=== PATIENT | female | born 1955 | race American Indian/Alaskan Native ===

== ENCOUNTER 2017-03-11 10:00 | Emergency (ER) | payer MEDICARE ==
[2017-03-11 11:17] LABS: Basophils % (Auto) 1.1 % (0.0-1.8); Hematocrit 52.3 % (30.3-42.9); Mean Corpuscular HGB Conc 33 % (30-34); Mean Corpuscular Hemoglobin 32 pg (28-32); Mean Corpuscular Volume 98 fl (79-97); Platelet Count 260 K/mm3 (140-440); Red Blood Count 5.33 M/mm3 (3.65-5.03); Red Cell Distribution Width 13.9 % (13.2-15.2); White Blood Count 6.7 K/mm3 (4.5-11.0)
[2017-03-11 11:36] LABS: Anion Gap 19 mmol/L; BUN/Creatinine Ratio 22.85; Blood Urea Nitrogen 16 mg/dL (7-17); Calcium 9.9 mg/dL (8.4-10.2); Carbon Dioxide 22 mmol/L (22-30); Chloride 102.5 mmol/L (98-107); Glucose 122 mg/dL (65-100); Potassium 3.9 mmol/L (3.6-5.0); Sodium 140 mmol/L (137-145)
[2017-03-11 12:26] LABS: Bilirubin,Urine NEG (Negative); Blood,Urine NEG (Negative); Ketones,Urine NEG (Negative); Leukocyte Esterase,Urine NEG (Negative); Mucus,Urine FEW /HPF; Nitrite,Urine NEG (Negative); Urobilinogen,Urine < 2.0 mg/dL (<2.0)
--- NOTE | 2017-03-11 13:28 | Emergency Department Report ---
ED General Adult HPI - General Chief complaint: Nausea/Vomiting/Diarrhea Stated complaint: Chest Pain Time Seen by Provider: 03/11/17 12:56 Source: patient Mode of arrival: Ambulatory Limitations: No Limitations - History of Present Illness Initial comments: Patient comes in the ER today with complaints of generalized abdominal cramping , diarrhea, nausea, headaches. Patient has had symptoms for the past week and thinks that is related to the new diabetes medicine. Patient states that she was recently diagnosed with diabetes 3 weeks ago at which time she started metformin. Since that time she has started getting all these symptoms and she really believes that is all related. She denies any focal area of abdominal pain but rather a cramping sensation. Patient states that she stop the metformin 2 days ago that she is still having the symptoms. The patient went to see her seamer operator this morning and then he worked her up for her heart and said that her heart was fine. After such he sent her here to the ER for further evaluation. Patient denies any fever, hemoptysis, nasal congestion, ear pain, sore throat. Patient denies any dysuria. - Related Data Home Medications Medication Instructions Recorded Confirmed Last Taken ALBUTEROL Inhaler [ProAir HFA 2 puff INHALATION Q6HR PRN 12/11/14 07/16/15 Unknown Inhaler] ALBUTEROL NEB's [Proventil 0.083% 1 vial INHALATION Q4HR PRN 12/11/14 07/16/15 Unknown NEBS] Clobetasol 0.05% [Temovate] 1 ml TP 2XW 12/11/14 07/16/15 Unknown Cyclobenzaprine [Flexeril 10 MG 1 tab PO TID 12/11/14 07/16/15 Unknown TAB] Fluticasone [Flonase] 2 sprays INHALATION DAILY 12/11/14 07/16/15 Unknown HYDROcodone/APAP 10-325 [[place] 1 tab PO TID PRN 12/11/14 07/16/15 Unknown 10-325 mg TAB] Hydrocortisone 2.5% [Proctosol-Hc] 1 ml TP BID PRN 12/11/14 07/16/15 Unknown Hydrocortisone/Pramoxine 1 ml [place] BID PRN 12/11/14 07/16/15 Unknown [Proctofoam-Hc 1%-1% Foam] Lidocaine Topical 5% [Xylocaine 1 ml TP BID 12/11/14 07/16/15 Unknown Topical 5%] Omeprazole [PriLOSEC] 40 mg PO DAILY 12/11/14 07/16/15 Unknown Pregabalin [Lyrica] 200 mg PO TID 12/11/14 07/16/15 Unknown Triamcinolone Acetonide 1 ml TP DAILY 12/11/14 07/16/15 Unknown [Triamcinolone Acetonide Oint 0.5%] clonazePAM 1 mg PO HS 12/11/14 07/16/15 Unknown fentaNYL [Duragesic 50mcg] 1 patch TP Q72HR 12/11/14 07/16/15 07/16/15 08:00 1 PAtch Previous Rx's Medication Instructions Recorded Last Taken Type Pantoprazole [Protonix TAB] 40 mg PO BID #35 tablet 12/13/14 Unknown Rx Aspirin EC [Aspirin Enteric Coated 325 mg PO QDAY #30 tablet 09/27/15 Unknown Rx TAB] AtorvaSTATin [Lipitor] 80 mg PO QHS #30 tablet 09/27/15 Unknown Rx Clopidogrel [Plavix] 75 mg PO QDAY #30 tablet 09/27/15 Unknown Rx Metoprolol [Lopressor TAB] 50 mg PO BID #60 tablet 09/27/15 Unknown Rx Promethazine /Codeine 10 ml PO Q6H PRN #120 udc 03/11/17 Unknown Rx [Phenergan/Codeine 6.25-10 mg/5Ml] Allergies Allergy/AdvReac Type Severity Reaction Status Date / Time baclofen Allergy Unknown Verified 07/16/15 15:04 ED Review of Systems ROS: Stated complaint: Chest Pain Other details as noted in HPI Constitutional: denies: chills, fever Eyes: denies: eye pain, eye discharge, vision change ENT: denies: ear pain, throat pain Respiratory: cough. denies: shortness of breath, SOB with exertion, SOB at rest , wheezing Cardiovascular: denies: chest pain, palpitations, edema, syncope Endocrine: no symptoms reported Gastrointestinal: abdominal pain, nausea, diarrhea. denies: constipation, hematemesis, melena, hematochezia Genitourinary: denies: urgency, dysuria, hematuria, discharge Musculoskeletal: denies: back pain, joint swelling, arthralgia Skin: denies: rash, lesions Neurological: headache. denies: weakness, paresthesias Psychiatric: denies: anxiety, depression Hematological/Lymphatic: denies: easy bleeding, easy bruising ED Past Medical Hx - Past Medical History Previous Medical History?: Yes Hx Hypertension: Yes Hx Congestive Heart Failure: No Hx Diabetes: No Hx GERD: Yes Hx Renal Disease: No Hx Arthritis: Yes Hx Headaches / Migraines: Yes Hx Seizures: No Hx Asthma: Yes Hx COPD: Yes Hx Dementia: No Hx HIV: No Additional medical history: heart murmur, severe nerve damage Left foot - Surgical History Past Surgical History?: Yes Additional Surgical History: Left partial upper lobectomy, hysterectomy. HERNIA REPAIR. PILONIDAL CYSTS - Social History Smoking Status: Current Every Day Smoker Substance Use Type: Prescribed - Medications Home Medications: Home Medications Medication Instructions Recorded Confirmed Last Taken Type ALBUTEROL Inhaler [ProAir HFA 2 puff INHALATION Q6HR PRN 12/11/14 07/16/15 Unknown History Inhaler] ALBUTEROL NEB's [Proventil 0.083% 1 vial INHALATION Q4HR PRN 12/11/14 07/16/15 Unknown History NEBS] Clobetasol 0.05% [Temovate] 1 ml TP 2XW 12/11/14 07/16/15 Unknown History Cyclobenzaprine [Flexeril 10 MG 1 tab PO TID 12/11/14 07/16/15 Unknown History TAB] Fluticasone [Flonase] 2 sprays INHALATION DAILY 12/11/14 07/16/15 Unknown History HYDROcodone/APAP 10-325 [[place] 1 tab PO TID PRN 12/11/14 07/16/15 Unknown History 10-325 mg TAB] Hydrocortisone 2.5% [Proctosol-Hc] 1 ml TP BID PRN 12/11/14 07/16/15 Unknown History Hydrocortisone/Pramoxine 1 ml UT BID PRN 12/11/14 07/16/15 Unknown History [Proctofoam-Hc 1%-1% Foam] Lidocaine Topical 5% [Xylocaine 1 ml TP BID 12/11/14 07/16/15 Unknown History Topical 5%] Omeprazole [PriLOSEC] 40 mg PO DAILY 12/11/14 07/16/15 Unknown History Pregabalin [Lyrica] 200 mg PO TID 12/11/14 07/16/15 Unknown History Triamcinolone Acetonide 1 ml TP DAILY 12/11/14 07/16/15 Unknown History [Triamcinolone Acetonide Oint 0.5%] clonazePAM 1 mg PO HS 12/11/14 07/16/15 Unknown History fentaNYL [Duragesic 50mcg] 1 patch TP Q72HR 12/11/14 07/16/15 07/16/15 08:00 History 1 PAtch Pantoprazole [Protonix TAB] 40 mg PO BID #35 tablet 12/13/14 07/16/15 Unknown Rx Aspirin EC [Aspirin Enteric Coated 325 mg PO QDAY #30 tablet 09/27/15 Unknown Rx TAB] AtorvaSTATin [Lipitor] 80 mg PO QHS #30 tablet 09/27/15 Unknown Rx Clopidogrel [Plavix] 75 mg PO QDAY #30 tablet 09/27/15 Unknown Rx Metoprolol [Lopressor TAB] 50 mg PO BID #60 tablet 09/27/15 Unknown Rx Promethazine /Codeine 10 ml PO Q6H PRN #120 udc 03/11/17 Unknown Rx [Phenergan/Codeine 6.25-10 mg/5Ml] ED Physical Exam - General Limitations: No Limitations General appearance: alert, in no apparent distress - Head Head exam: Present: atraumatic, normocephalic - Eye Eye exam: Present: normal appearance, PERRL, EOMI - ENT ENT exam: Present: normal exam, normal orophraynx, mucous membranes moist, TM's normal bilaterally, normal external ear exam - Neck Neck exam: Present: normal inspection, full ROM. Absent: tenderness, lymphadenopathy - Respiratory Respiratory exam: Present: normal lung sounds bilaterally, rhonchi. Absent: respiratory distress, wheezes, rales, chest wall tenderness, accessory muscle use, decreased breath sounds - Cardiovascular Cardiovascular Exam: Present: regular rate, normal rhythm. Absent: systolic murmur, diastolic murmur, rubs, gallop - GI/Abdominal GI/Abdominal exam: Present: soft, normal bowel sounds, hyperactive bowel sounds. Absent: distended, tenderness, guarding, rebound - Extremities Exam Extremities exam: Present: normal inspection - Back Exam Back exam: Present: normal inspection - Neurological Exam Neurological exam: Present: alert, oriented X3, CN II-XII intact - Psychiatric Psychiatric exam: Present: normal affect, normal mood. Absent: anxious - Skin Skin exam: Present: warm, dry, intact, normal color. Absent: rash ED Course Vital Signs 03/11/17 03/11/17 03/11/17 10:22 12:20 13:00 Temperature 97.5 F L Pulse Rate 72 70 70 Respiratory 18 13 15 Rate Blood Pressure 158/96 156/91 174/100 O2 Sat by Pulse 97 93 92 Oximetry 03/11/17 03/11/17 14:00 14:20 Temperature Pulse Rate 77 Respiratory Rate Blood Pressure 159/100 159/100 O2 Sat by Pulse 99 97 Oximetry ED Medical Decision Making - Lab Data Result diagrams: 03/11/17 10:29 03/11/17 10:29 Lab Results 03/11/17 03/11/17 03/11/17 Range/Units 10:29 10:29 10:29 WBC 6.7 (4.5-11.0) K/mm3 RBC 5.33 H (3.65-5.03) M/mm3 Hgb 17.0 H (10.1-14.3) gm/dl Hct 52.3 H (30.3-42.9) % MCV 98 H (79-97) fl MCH 32 (28-32) pg MCHC 33 (30-34) % RDW 13.9 (13.2-15.2) % Plt Count 260 (140-440) K/mm3 Lymph % (Auto) 31.9 (13.4-35.0) % [place] % (Auto) 8.9 H (0.0-7.3) % Eos % (Auto) 3.0 (0.0-4.3) % Baso % (Auto) 1.1 (0.0-1.8) % Lymph # 2.1 (1.2-5.4) K/mm3 [place] # 0.6 (0.0-0.8) K/mm3 Eos # 0.2 (0.0-0.4) K/mm3 Baso # 0.1 (0.0-0.1) K/mm3 Seg Neutrophils % 55.1 (40.0-70.0) % Seg Neutrophils # 3.7 (1.8-7.7) K/mm3 Sodium 140 (137-145) mmol/L Potassium 3.9 (3.6-5.0) mmol/L Chloride 102.5 (98-107) mmol/L Carbon Dioxide 22 (22-30) mmol/L Anion Gap 19 mmol/L BUN 16 (7-17) mg/dL Creatinine 0.7 (0.7-1.2) mg/dL Estimated GFR > 60 ml/min BUN/Creatinine Ratio 22.85 % Glucose 122 H (65-100) mg/dL Calcium 9.9 (8.4-10.2) mg/dL Total Bilirubin 0.40 (0.1-1.2) mg/dL Direct Bilirubin < 0.2 (0-0.2) mg/dL AST 65 H (5-40) units/L ALT 45 (7-56) units/L Alkaline Phosphatase 78 (35-129) units/L Total Protein 8.6 H (6.3-8.2) g/dL Albumin 4.5 (3.9-5) g/dL Albumin/Globulin Ratio 1.1 % Lipase 32 (13-60) units/L Urine Color (Yellow) Urine Turbidity (Clear) Urine pH (5.0-7.0) Ur Specific [place] (1.003-1.030) Urine Protein (Negative) mg/dL Urine Glucose (UA) (Negative) mg/dL Urine Ketones (Negative) mg/dL Urine Blood (Negative) Urine Nitrite (Negative) Urine Bilirubin (Negative) Urine Urobilinogen (<2.0) mg/dL Ur Leukocyte Esterase (Negative) Urine WBC (Auto) (0.0-6.0) /HPF Urine RBC (Auto) (0.0-6.0) /HPF U Epithel Cells (Auto) (0-13.0) /HPF Urine Mucus /HPF // Range/Units 11:25 WBC (4.5-11.0) K/mm3 RBC (3.65-5.03) M/mm3 Hgb (10.1-14.3) gm/dl Hct (30.3-42.9) % MCV (79-97) fl MCH (28-32) pg MCHC (30-34) % RDW (13.2-15.2) % Plt Count (140-440) K/mm3 Lymph % (Auto) (13.4-35.0) % [place] % (Auto) (0.0-7.3) % Eos % (Auto) (0.0-4.3) % Baso % (Auto) (0.0-1.8) % Lymph # (1.2-5.4) K/mm3 [place] # (0.0-0.8) K/mm3 Eos # (0.0-0.4) K/mm3 Baso # (0.0-0.1) K/mm3 Seg Neutrophils % (40.0-70.0) % Seg Neutrophils # (1.8-7.7) K/mm3 Sodium (137-145) mmol/L Potassium (3.6-5.0) mmol/L Chloride (98-107) mmol/L Carbon Dioxide (22-30) mmol/L Anion Gap mmol/L BUN (7-17) mg/dL Creatinine (0.7-1.2) mg/dL Estimated GFR ml/min BUN/Creatinine Ratio % Glucose (65-100) mg/dL Calcium (8.4-10.2) mg/dL Total Bilirubin (0.1-1.2) mg/dL Direct Bilirubin (0-0.2) mg/dL AST (5-40) units/L ALT (7-56) units/L Alkaline Phosphatase (35-129) units/L Total Protein (6.3-8.2) g/dL Albumin (3.9-5) g/dL Albumin/Globulin Ratio % Lipase (13-60) units/L Urine Color Yellow (Yellow) Urine Turbidity Clear (Clear) Urine pH 5.0 (5.0-7.0) Ur Specific [place] 1.019 (1.003-1.030) Urine Protein 100 mg/dl (Negative) mg/dL Urine Glucose (UA) Neg (Negative) mg/dL Urine Ketones Neg (Negative) mg/dL Urine Blood Neg (Negative) Urine Nitrite Neg (Negative) Urine Bilirubin Neg (Negative) Urine Urobilinogen < 2.0 (<2.0) mg/dL Ur Leukocyte Esterase Neg (Negative) Urine WBC (Auto) 2.0 (0.0-6.0) /HPF Urine RBC (Auto) 3.0 (0.0-6.0) /HPF U Epithel Cells (Auto) 4.0 (0-13.0) /HPF Urine Mucus Few /HPF - Radiology Data Radiology results: report reviewed No acute process noted on chest x-ray - Medical Decision Making The patient is nontoxic and hemodynamically stable. His lab workup as well as x -ray results reviewed and discussed the patient in room today. Patient's white count unremarkable, LFTs within normal limits normal lipase. The patient's abdominal exam is benign with no focal tenderness. I informed patient that there is no exact way to determine as to if her symptoms are related to metformin but that her symptoms do coincide with common side effects of the medication. Patient has been without the metformin for the past 2 days and her blood sugar levels is only 122. Start patient on some medications for her symptoms of diarrhea as well as headache. I have encouraged patient follow up with her doctor for determining which diabetes medication he wants to go with next. Patient is in agreement with treatment plan and patient is stable for discharge. Critical care attestation.: If time is entered above; I have spent that time in minutes in the direct care of this critically ill patient, excluding procedure time. ED Disposition Clinical Impression: Diarrhea, Headache, Medication side effects Disposition: DISCHARGED TO HOME OR SELFCARE Is pt being admited?: No Does the pt Need Aspirin: No Condition: Good Instructions: Nutrition Tips for Relief of Diarrhea (ED), Meal Planning with Diabetes Exchanges (DC) Prescriptions: Promethazine /Codeine [Phenergan/Codeine 6.25-10 mg/5Ml] 10 ml PO Q6H PRN #120 udc PRN Reason: Bowel Movement Referrals: PRIMARY CARE, [Primary Care Provider] - 3-5 Days Time of Disposition: 14:48
[2017-03-11 13:45] LABS: Alanine Aminotransferase 45 units/L (7-56); Albumin 4.5 g/dL (3.9-5); Albumin/Globulin Ratio 1.1 %; Alkaline Phosphatase 78 units/L (35-129); Lipase 32 units/L (13-60); Total Protein 8.6 g/dL (6.3-8.2)
[2017-03-11 13:46] LABS: Bilirubin,Direct < 0.2 mg/dL (0-0.2)
[2017-03-11 14:22] VITALS: BP 159/100
--- NOTE | 2017-03-11 14:28 | XRay Report ---
CHEST ONE VIEW INDICATION: Cough. COMPARISON: 09/24/2015. FINDINGS: Portable, single, frontal chest radiograph demonstrates normal cardiomediastinal silhouette. Stable AP window surgical clips. Clear lungs. Thoracic spondylosis. Extrinsic EKG leads. CONCLUSION: No acute disease in the chest. Thank you for the opportunity to participate in this patient's care.
[2017-03-11] MEDS ORDERED: LIDOCAINE VISCOUS 2% PO ONE (14:42)
[2017-03-11] MEDS ORDERED: ALUM-MAG HYDROX-SIMETH 200-200-20MG/5ML PO ONE (14:42)
== END 2017-03-11 15:06 | disposition home or self-care (01) ==
LOC: ED 10:00
DX: R19.7 Diarrhea, unspecified (principal); R51 Headache; I10 Essential (primary) hypertension; K21.9 Gastro-esophageal reflux disease without esophagitis; M19.90 Unspecified osteoarthritis, unspecified site; G43.909 Migraine, unspecified, not intractable, without status migrainosus; J45.909 Unspecified asthma, uncomplicated; F17.200 Nicotine dependence, unspecified, uncomplicated; Z88.8 Allergy status to other drugs, medicaments and biological substances
CPT/HCPCS: 36415; 71010; 80048; 80074; 81001; 82962; 83690; 85025